=== PATIENT | female | born 1960 | race Two or more races ===

== ENCOUNTER 2018-10-23 10:20 | Outpatient (CLI) | payer OTHER ==
[~2018-10-23 10:20] MED LIST: DIOVAN320 MG; NORVASC5 MG
== END 2018-10-23 10:37 | disposition home or self-care (01) ==
LOC: RAD 10:20 → MAMO-SONO 10-28 13:15
DX: E04.0 Nontoxic diffuse goiter (principal); M19.90 Unspecified osteoarthritis, unspecified site; J44.9 Chronic obstructive pulmonary disease, unspecified

== ENCOUNTER 2018-11-25 07:30 | Outpatient (CLI) | payer OTHER | END 2018-11-25 07:32 | disposition home or self-care (01) | LOC: SONOGRAMA 07:30 | DX: E04.1 Nontoxic single thyroid nodule (principal) ==

== ENCOUNTER 2019-01-27 07:35 | Outpatient (CLI) | payer OTHER | END 2019-01-27 07:37 | disposition home or self-care (01) | LOC: SONOGRAMA 07:35 | DX: E04.2 Nontoxic multinodular goiter (principal) ==

== ENCOUNTER 2025-05-15 07:23 | Outpatient (CLI) | payer OTHER | END 2025-05-15 07:27 | disposition home or self-care (01) | LOC: NUCLEAR 07:23 | PROVIDERS: ATTEND Internal Medicine | DX: I20.9 Angina pectoris, unspecified (principal) ==

== ENCOUNTER 2025-05-19 08:11 | Outpatient (CLI) | payer OTHER | END 2025-05-19 08:13 | disposition home or self-care (01) | LOC: NUCLEAR 08:11 | PROVIDERS: ATTEND Internal Medicine | DX: I10 Essential (primary) hypertension (principal); R06.00 Dyspnea, unspecified ==